=== PATIENT | male | born 2000 | race Caucasian/White ===

== ENCOUNTER 2019-02-21 22:45 | Emergency (ER) | payer SELFPAY ==
[2019-02-21] MEDS ORDERED: Lidocaine 2% 10 ML Amp INJECT ONE (23:03)
[2019-02-21 23:06] VITALS: BP 127/63; PULSE 75
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
== END 2019-02-21 23:48 | disposition home or self-care (01) ==
LOC: VM.ED 22:45
DX: S51.811A Laceration without foreign body of right forearm, initial encounter (principal); Z79.899 Other long term (current) drug therapy; W26.8XXA Contact with other sharp object(s), not elsewhere classified, initial encounter
CPT/HCPCS: 12002; 99282; J2001; 99283-GF

== ENCOUNTER 2021-04-04 21:19 | Emergency (ER) | payer OTHER ==
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
[2021-04-04 21:54] VITALS: BP 151/47; PULSE 94
== END 2021-04-04 21:55 | disposition home or self-care (01) ==
LOC: VM.ED 21:19
DX: S09.90XA Unspecified injury of head, initial encounter (principal); V83.5XXA Driver of special industrial vehicle injured in nontraffic accident, initial encounter; Y92.410 Unspecified street and highway as the place of occurrence of the external cause
CPT/HCPCS: 99283